=== PATIENT | female | born 1995 | race Hispanic/Latino ===

== ENCOUNTER 2020-07-11 21:12 | Inpatient (IN) | payer MEDICAID ==
[~2020-07-11] VITALS: Ht 162.6 cm; Wt 83.0 kg
[2020-07-11] MEDS ORDERED: LACTATED RINGERS 1000ML 1,000 ML IV PRN (21:27)
[2020-07-11] MEDS ORDERED: LACTATED RINGERS 1000ML 1,000 ML IV SCH (21:30)
[2020-07-11] MEDS ORDERED: CEFAZOLIN SODIUM 1 GM VIAL IVP PRN (21:30)
[2020-07-11] MEDS ORDERED: CALDOLOR 800MG+NS 250ML 250 ML IV PRN (21:30)
[2020-07-11 23:32] LABS: HEMATOCRIT 36.8 % (36-48); MEAN CORPUSCULAR HEMOGLOBIN 28.7 pg (27.0-33.0); MEAN CORPUSCULAR HGB CONC 32.9 g/dL (32.0-36.0); MEAN CORPUSCULAR VOLUME 87.4 fL (79-99); RED BLOOD CELL COUNT(AUTO) 4.21 MIL/uL (4.00-5.50); RED CELL DISTRIBUTION WIDTH 13.9 % (11.0-15.5); WHITE BLOOD COUNT (AUTO) 10.7 K/uL (4.8-10.8)
[2020-07-12] VITALS (16 sets, daily range): BP systolic 107–149; BP diastolic 71–98
[2020-07-12] MEDS ORDERED: OXYTOCIN-LR 20 UNITS/1000 ML 2,000 ML IV ONE (07:24)
[2020-07-12] MEDS ORDERED: TRANEXAMIC ACID 1000MG/10ML ONE (07:37)
[2020-07-12] MEDS ORDERED: MISOPROSTOL 200 MCG TABLET ONE (07:38)
[2020-07-12] MEDS ORDERED: METHYLERGONOVINE MALEATE 0.2 MG/1 ML ML ONE (07:38)
[2020-07-12] MEDS ORDERED: EPHEDRINE SULFATE 50 MG/ML AMPULE ONE (08:16)
[2020-07-12] MEDS ORDERED: PHENYLEPHRINE HCL 10 MG/ML 1ML VIAL IV ONE (08:16)
[2020-07-12] MEDS ORDERED: DEXAMETHASONE SOD PHOSPHATE 10MG/ML 1ML VIAL ONE (08:16)
[2020-07-12] MEDS ORDERED: DURAMORPH PF1 MG/ML 10ML AMP IV ONE (08:17)
[2020-07-12] MEDS ORDERED: OXYTOCIN 10 USP UNITS/ML ONE (08:17)
[2020-07-12] MEDS ORDERED: ONDANSETRON HCL 4 MG/2 ML VIAL ONE (08:17)
[2020-07-12] MEDS ORDERED: ACETAMINOPHEN EXTRA STRENGTH 500 MG TABLET PO PRN (09:30)
[2020-07-12] MEDS ORDERED: OXYTOCIN-LR 20 UNITS/1000 ML 1,000 ML IV PRN (09:30)
[2020-07-12] MEDS ORDERED: PROMETHAZINE HCL 25 MG/ML 1ML AMPULE IM PRN ×2 (09:30→10:00)
[2020-07-12] MEDS ORDERED: MEPERIDINE-PF 75 MG/ML SYG IM PRN (09:30)
[2020-07-12] MEDS ORDERED: SODIUM CHLORIDE 0.9% 10 ML VIAL IVP PRN (09:30)
[2020-07-12] MEDS ORDERED: ACETAMINOPHEN-CODEINE 300/30MG TAB PO PRN (09:30)
[2020-07-12] MEDS ORDERED: SIMETHICONE 80 MG TAB.CHEW PO PRN (09:30)
[2020-07-12] MEDS ORDERED: DIPHENHYDRAMINE HCL 25 MG CAPSULE PO PRN (09:30)
[2020-07-12] MEDS: IBUPROFEN 800 MG TAB PO SCH (09:30)
[2020-07-12] MEDS ORDERED: LANOLIN 30GM OINTMENT TP PRN (09:30)
[2020-07-12] MEDS ORDERED: BISACODYL 10 MG SUPP.RECT RC PRN (09:30)
[2020-07-12] MEDS ORDERED: MEASLES/MUMPS/RUBELLA VACCINE, LIVE 0.5 ML/VIAL SQ SCH (09:30)
[2020-07-12] MEDS ORDERED: RACEPINEPHRINE HCL 2.25% 0.5 ML NEB SOLN NEB PRN (10:00)
[2020-07-12] MEDS ORDERED: MORPHINE SULFATE 5 MG/ML VIAL IVP PRN (10:00)
[2020-07-12] MEDS ORDERED: NALOXONE HCL 0.4 MG/1 ML ML IVP PRN (10:00)
[2020-07-12] MEDS ORDERED: FENTANYL CITRATE PF 50 MCG/1 ML 2ML VIAL IVP PRN (10:00)
[2020-07-12] MEDS ORDERED: KETOROLAC TROMETHAMINE 30MG/ML IVP PRN (10:00)
[2020-07-12] MEDS ORDERED: MEPERIDINE-PF 25 MG/ML SYG IVP PRN (10:00)
[2020-07-12] MEDS ORDERED: METOCLOPRAMIDE 10 MG/2 ML VIAL IVP PRN (10:00)
[2020-07-12] MEDS ORDERED: ONDANSETRON HCL 4 MG/2 ML VIAL IVP PRN (10:00)
[2020-07-12] MEDS ORDERED: IPRATROPIUM/ALBUTEROL SULFATE 3 ML SOLUTION IH PRN (10:00)
--- NOTE | 2020-07-12 11:10 | NUR ---
FUNDUS MASSAGED, BLEEDING IS SMALL. SMALL TRICKLE NOTED. CONNIE WEISS RN AT BEDSIDE. PERICARE GIVEN AT THIS TIME.
--- NOTE | 2020-07-12 11:18 | NUR ---
DR. BERMUDEZ NOTIFIED ON PATIENT'S STATUS. INFORMED THAT PATIENT HAS SMALL BLEEDING ON MASSAGE AND CONTINUOUS SMALL TRICKLE. NEW ORDERS RECEIVED FOR METHERGINE PO Q6 X4 DOSES.
[2020-07-12] MEDS: HYDROCODONE/ACETAMINOPHEN 5/325 MG TAB PO PRN ×2 (11:20→20:35)
--- NOTE | 2020-07-12 13:20 | NUR ---
PATIENT CALLED AND STATED THAT PADS NEEDED TO BE CHANGED. CONNIE WEISS RN ASSISTED IN FUNDAL MASSAGE. FUNDUS REMAINS FIRM, BLEEDING IS SMALL. WALNUT SIZED CLOT NOTED ON PERIPAD. PERICARE GIVEN AT THIS TIME.
[2020-07-12] MEDS: DEXTROSE 5 %-0.45 % NACL 1,000 ML IV PRN (15:47)
--- NOTE | 2020-07-12 16:45 | NUR ---
FUNDUS IS FIRM, NO CLOTS EXPELLED ON MASSAGE. PERICARE GIVEN ASSISTED BY JASON REESE.
[2020-07-12] MEDS ORDERED: FERR-82 PO (17:09)
[2020-07-12] MEDS ORDERED: PNV1TABL17 PO (17:09)
[2020-07-12] MEDS: CALDOLOR 800MG+NS 250ML 250 ML IV SCH (17:36)
--- NOTE | 2020-07-12 19:30 | NUR ---
pt. assessed, maria g care done. scant rubra lochia noted.
--- NOTE | 2020-07-12 20:05 | NUR ---
pt. dangled at bedside by Yoselyn (PCP). well tolerated.
[2020-07-12] MEDS: DOCUSATE SODIUM 100 MG CAP PO SCH (20:34)
--- NOTE | 2020-07-12 20:35 | NUR ---
MEDICATED FOR PAIN, SEE eMAR.
--- NOTE | 2020-07-12 22:35 | NUR ---
PT. RESTING IN BED, DENIED FURTHER PAIN.
--- NOTE | 2020-07-12 22:45 | NUR ---
JIL CARE DONE BY
--- NOTE | 2020-07-12 23:22 | NUR ---
PT. EXPRESSED CONCERN ABOUT A SMALL OOZING SPOT ON HER RIGHT CLAVICLE (COVERED WITH GAUZE AND BAND AID). PT. REMOVED THE BAND AID AND IT SHOWED THE SMALL OOZING SPOT. SHE CLAIMED SHE'S HAD IT LIKE THAT SINCE LAST WEEK AFTER SHE SCRATCHED OFF WHAT LOOKED LIKE A TINT PIMPLE FROM HER RIGHT CLAVICLE. A FRESH SMALL GAUZE APPLIED WITH A CLEAN BAND AID. PT. INST THAT MD WILL BE MADE AWARE OF IT DURING THE DAYTIME SINCE ONLY A TINY OOZING WAS NOTED.
[2020-07-13 00:20] VITALS: BP 105/56
[2020-07-13] MEDS: CALDOLOR 800MG+NS 250ML 250 ML IV SCH (01:33)
[2020-07-13] MEDS: DEXTROSE 5 %-0.45 % NACL 1,000 ML IV PRN (01:37)
--- NOTE | 2020-07-13 01:50 | NUR ---
PT. AWAKE, DISCHARGE INST. GIVEN.
[2020-07-13] MEDS: HYDROCODONE/ACETAMINOPHEN 5/325 MG TAB PO PRN ×2 (02:40→10:22)
--- NOTE | 2020-07-13 02:40 | NUR ---
MED. FOR C/O PAIN, SEE eMAR.
--- NOTE | 2020-07-13 03:40 | NUR ---
RESTING IN BED; DENIED PAIN
[2020-07-13 03:49] VITALS: BP 117/82
[2020-07-13] MEDS: DIPH,PERTUSS(ACELL),TET VAC/PF 0.5 ML VIAL IM SCH (04:22)
--- NOTE | 2020-07-13 06:05 | NUR ---
JIL CARE DONE BY YARON AND ASSISTED PT. UP IN CHAIR.
--- NOTE | 2020-07-13 06:25 | NUR ---
JUAREZ CATHETER DISCONTINUED, PT. INST TO CALL FOR ASSIST BEFORE GETTING OUT OF CHAIR, VERBALIZED UNDERSTANDING.
[2020-07-13 07:02] LABS: HEMATOCRIT 28.9 % (36-48); MEAN CORPUSCULAR HGB CONC 33.2 g/dL (32.0-36.0); MEAN CORPUSCULAR VOLUME 87.3 fL (79-99); RED BLOOD CELL COUNT(AUTO) 3.31 MIL/uL (4.00-5.50); RED CELL DISTRIBUTION WIDTH 13.5 % (11.0-15.5); WHITE BLOOD COUNT (AUTO) 15.9 K/uL (4.8-10.8)
[2020-07-13 07:15] LABS: HEPATITIS Bs ANTIGEN SCREEN P Negative (Negative)
[2020-07-13 07:28] VITALS: BP 97/63
--- NOTE | 2020-07-13 08:00 | NUR ---
ASSESSMENT: RECEIVED SITTING UP IN CHAIR, EXPLAINED POC AND UNDERSTANDING VERBALIZED, CALL [facility] AT HER SIDE. REQUESTING PAIN MED.
[2020-07-13] MEDS: DOCUSATE SODIUM 100 MG CAP PO SCH (08:07)
[2020-07-13] MEDS ORDERED: LIDOCAINE 5% TOPICAL PATCH TP SCH (09:00)
[2020-07-13] MEDS: IBUPROFEN 800 MG TAB PO SCH (09:01)
--- NOTE | 2020-07-13 10:19 | NUR ---
HYGEINE: AMB TO BR, UNABLE TO VOID, INSTRUCTED ON JIL CARE AND RETURNED DEMONSTRATION. STATES SHE IS STILL IN PAIN, REQUESTING PAIN MED.
[2020-07-13 11:05] VITALS: BP 105/65
--- NOTE | 2020-07-13 11:20 | NUR ---
ACTIVITY: AMB IN ROOM, STATES FEELS MUCH BETTER.
--- NOTE | 2020-07-13 11:56 | NUR ---
ACTIVITY: AMB IN HALLWAY.
--- NOTE | 2020-07-13 13:00 | NUR ---
HYGEINE: TOOK SHOWER
--- NOTE | 2020-07-13 14:19 | NUR ---
DISCHARGE: DISCHARGE INSTRUCTIONS GIVEN TO PT ON SELF CARE POST R C/S, INCISION CARE,REVIEWED RX FOR MOTRIN, COLACE,TYLENOL WITH CODEINE, TO FOLLOW UP WITH [facility] ON 08/01 AT 2PM OR SOONER IF NEEDED. UNDERSTANDING VERBALIZED AND COPIES OF ALL INSTRUCTIONS GIVEN TO PT.
--- NOTE | 2020-07-13 14:55 | NUR ---
DISCHARGE: DISCHARGED HOME WITH HER BABY TO PRIVATE CAR WITH .
== END 2020-07-13 14:55 | disposition home or self-care (01) | DRG 540 ==
LOC: LDH 21:12 → WSH 07-12 10:35
PROVIDERS: ADMIT Obstetrics & Gynecology; ATTEND Obstetrics & Gynecology
PROC: 3E0234Z Introduction of Serum, Toxoid and Vaccine into Muscle, Percutaneous Approach (ICD-10-PCS; 2020-07-12)
PROC: 3E0134Z Introduction of Serum, Toxoid and Vaccine into Subcutaneous Tissue, Percutaneous Approach (ICD-10-PCS; 2020-07-12)
PROC: 10D00Z1 Extraction of Products of Conception, Low, Open Approach (ICD-10-PCS; principal; 2020-07-12 08:24)
DX: O34.211 Maternal care for low transverse scar from previous cesarean delivery (principal); O24.425 Gestational diabetes mellitus in childbirth, controlled by oral hypoglycemic drugs; O99.214 Obesity complicating childbirth; O99.52 Diseases of the respiratory system complicating childbirth; J45.909 Unspecified asthma, uncomplicated; E66.9 Obesity, unspecified; Z3A.39 39 weeks gestation of pregnancy; Z37.0 Single live birth; Z23 Encounter for immunization
CPT/HCPCS: 36415; 59510; 82948; 85027; 86592; 86850; 86900; 86901; 87340; 90715; A4344; G0378; J0690; J1100; J1741; J2175; J2210; J2274; J2370; J2405; J2550; J2590; J3490; J7120